=== PATIENT | male | born 1955 | race Two or more races ===

== ENCOUNTER 2016-11-22 07:15 | Emergency (ER) | payer SELFPAY ==
[~2016-11-22] VITALS: Ht 167.6 cm; Wt 86.2 kg
[~2016-11-22 07:15] MED LIST: AMLODIPINE BESY10 MG ORAL; ASPIRIN81 MG ORAL; HYDROCHLOROTHIA25 MG ORAL; METOPROLOL TART50 M1 ORAL; NITROGLYCERIN0.4 MG SL; POTASSIUM CHLO10 ME3 ORAL; SIMVASTATIN10 MG ORAL
[2016-11-22 07:30] VITALS: BP 150/84
[2016-11-22] MEDS ORDERED: Silver Nitrate Stick TOPIC ONE (08:00)
[2016-11-22] MEDS ORDERED: Lidocaine 1% 10mg/ml/Epi 0.005mg/ml 30ml vial INJ ONE (08:00)
--- NOTE | 2016-11-22 08:07 | Emergency Room Report ---
History of Present Illness General Chief Complaint: Nosebleed Source: Patient Present Illness HPI Patient presents with intermittent nosebleeds for one month. Son the left-hand side and comes out from the front. Denies any fevers or pain. He is on medications for high blood pressure and high cholesterol. He denies taking aspirin or ibuprofen. He hasn't lost a tremendous amount of blood but is concerned about the bleeding. It's not bleeding at the moment but bled this morning. He is treated for hypertension. Review of labs after our labs reveal low potassium when last checked. He is on HCTZ. No fevers, chills, chest pain, palpitations, nausea, vomiting, diarrhea, dysuria , abdominal pain, shortness of breath, depression, visual changes, headache. Allergies: Coded Allergies: No Known Allergies (Unverified , 12/23/13) Patient History Past Medical History: see triage record Social History Narrative works lifting heavy objects - Reviewed Nursing Documentation: PMH: Agreed, PSxH: Agreed Nursing Documentation-PMH Hx Cardiac Problems: Yes - high cholesterol Hx Hypertension: Yes Hx Pacemaker: No Hx Asthma: No Hx COPD: No Hx Diabetes: No Hx Cancer: No Hx Gastrointestinal Problems: No Hx Dialysis: No Hx Neurological Problems: No Hx Cerebrovascular Accident: No Hx Seizures: No Review of Systems All Other Systems: negative except mentioned in HPI Physical Exam Vital Signs Date Time Temp Pulse Resp B/P Pulse Ox O2 Delivery O2 Flow Rate FiO2 11/22/16 07:22 98.2 80 16 150/84 96 Room Air Sp02 EP Interpretation: reviewed, normal General Appearance: well appearing, no apparent distress, GCS 15 Head: normocephalic Eyes: bilateral eye PERRL, bilateral eye normal inspection ENT: normal pharynx, other - blood from L ant nare, no active bleeding Neck: supple Respiratory: lungs clear, normal breath sounds Cardiovascular #1: regular rate, rhythm Cardiovascular #2: 2+ radial (R) Gastrointestinal: normal inspection, normal bowel sounds, non tender, no mass, non-distended Musculoskeletal: back normal, gait/station normal, normal range of motion Neurologic: alert, oriented x3, grossly normal Psychiatric: mood/affect normal Skin: normal inspection, warm/dry, other - no pallor Procedures Additional Procedure Procedure Narrative Anterior epistaxis control. Packed with lidocaine with epinephrine. Cauterized vessel L septum. No more bleeding. Tolerated well. Medical Decision Making Diagnostic Impression: Primary Impression: Epistaxis Additional Impression: Hypokalemia ER Course Patient presents with left anterior epistaxis. As he's never had bloods drawn for this problem he be evaluated with CBC, PT PTT and also CMP. The nose will be PACs and also the lesion will be look for to possibly cauterize. See procedure note. Labs with good H/H. Low potassium. Potassium has been low for 5 years. Given PO. Changing from HCTZ to dyazide and giving replacement. Patient stable for outpatient observation and treatment. Laboratory Tests Test 11/22/16 08:15 White Blood Count 7.3 K/UL (4.8-10.8) Red Blood Count 4.40 M/UL (4.70-6.10) L Hemoglobin 13.5 G/DL (14.2-18.0) L Hematocrit 39.5 % (42.0-52.0) L Mean Corpuscular Volume 90 FL (80-99) Mean Corpuscular Hemoglobin 30.7 PG (27.0-31.0) Mean Corpuscular Hemoglobin Concent 34.1 G/DL (32.0-36.0) Red Cell Distribution Width 11.3 % (11.6-14.8) L Platelet Count 277 K/UL (150-450) Mean Platelet Volume 8.0 FL (6.5-10.1) Neutrophils (%) (Auto) 73.8 % (45.0-75.0) Lymphocytes (%) (Auto) 17.7 % (20.0-45.0) L Monocytes (%) (Auto) 6.9 % (1.0-10.0) Eosinophils (%) (Auto) 0.9 % (0.0-3.0) Basophils (%) (Auto) 0.7 % (0.0-2.0) Prothrombin Time 9.9 SEC (9.30-11.50) Prothrombin Time INR 0.9 (0.9-1.1) PTT 27 SEC (23-33) Sodium Level 143 mEQ/L (135-145) Potassium Level 2.7 mEQ/L (3.4-4.9) *L Chloride Level 101 mEQ/L (98-107) Carbon Dioxide Level 29 mEQ/L (20-30) Anion Gap 13 (5-15) Blood Urea Nitrogen 20 mg/dL (7-23) Creatinine 0.9 mg/dL (0.7-1.2) Estimate Glomerular Filtration Rate > 60 mL/min (>60) Glucose Level 228 mg/dL (74-106) H Calcium Level 9.3 mg/dL (8.6-10.2) Total Bilirubin 0.3 mg/dL (0.0-1.2) Aspartate Amino Transferase (AST) 19 U/L (5-40) Alanine Aminotransferase (ALT) 21 U/L (3-41) Alkaline Phosphatase 75 U/L (40-129) Total Protein 7.5 g/dL (6.6-8.7) Albumin 4.1 g/dL (3.5-5.2) Globulin 3.4 g/dL Albumin/Globulin Ratio 1.2 (1.0-2.7) Last Vital Signs Date Time Temp Pulse Resp B/P Pulse Ox O2 Delivery O2 Flow Rate FiO2 11/22/16 10:02 98.2 81 16 151/76 97 Room Air Status: improved Disposition: HOME, SELF-CARE Scripts Potassium Chloride (K-TAB) 10 Meq Tablet.er 10 MEQ PO DAILY, #14 TAB Prov: Jose Live M.D. 11/22/16 Triamterene/Hydrochlorothiazide* (DYAZIDE 37.5-25 MG TAB*) 1 Each Tablet 1 TAB ORAL DAILY, #30 TAB Prov: Jose Live M.D. 11/22/16 Jose Live M.D. Nov 22, 2016 08:07
[2016-11-22 08:30] VITALS: BP 144/79
[2016-11-22 08:32] LABS: BASOPHILS % (AUTO) 0.7 % (0.0-2.0); EOSINOPHILS % (AUTO) 0.9 % (0.0-3.0); LYMPHOCYTES % (AUTO) 17.7 % (20.0-45.0); MEAN CORPUSCULAR HEMOGLOBIN 30.7 PG (27.0-31.0); MEAN CORPUSCULAR HGB CONC 34.1 G/DL (32.0-36.0); MEAN CORPUSCULAR VOLUME 90 FL (80-99); MONOCYTES % (AUTO) 6.9 % (1.0-10.0); NEUTROPHILS % (AUTO) 73.8 % (45.0-75.0); PLATELET COUNT 277 K/UL (150-450); RED CELL DISTRIBUTION WIDTH 11.3 % (11.6-14.8); WHITE BLOOD COUNT 7.3 K/UL (4.8-10.8)
[2016-11-22 08:41] LABS: ALANINE AMINOTRANSFERASE 21 U/L (3-41); ALBUMIN/GLOBULIN RATIO 1.2 (1.0-2.7); ANION GAP 13 (5-15); ASPARTATE AMINO TRANSFERASE 19 U/L (5-40); CALCIUM 9.3 mg/dL (8.6-10.2); CARBON DIOXIDE 29 mEQ/L (20-30); CHLORIDE 101 mEQ/L (98-107); CREATININE 0.9 mg/dL (0.7-1.2); GLOMERULAR FILTRATION RATE > 60 mL/min (>60); HEMOLYSIS 8; SODIUM 143 mEQ/L (135-145); TOTAL PROTEIN 7.5 g/dL (6.6-8.7)
[2016-11-22 08:43] LABS: POTASSIUM 2.7 mEQ/L (3.4-4.9)
[2016-11-22 08:48] LABS: INR 0.9 (0.9-1.1); PROTHROMBIN TIME 9.9 SEC (9.30-11.50)
[2016-11-22] MEDS ORDERED: KCl 10% 40mEq/30ml liquid ORAL ONE (09:00)
[2016-11-22 09:30] VITALS: BP 151/76
[2016-11-22] MEDS ORDERED: TRIAMTERENE-HC1 EAC5 ORAL (09:45)
[2016-11-22] MEDS ORDERED: K-TAB10 MEQ PO (09:45)
[2016-11-22 10:02] VITALS: BP 151/76
== END 2016-11-22 10:03 | disposition home or self-care (01) ==
LOC: EMR 08:10
DX: R04.0 Epistaxis (principal); E87.6 Hypokalemia; I10 Essential (primary) hypertension; E78.00 Pure hypercholesterolemia, unspecified
CPT/HCPCS: 30901; 36415; 80053; 85025; 85610; 85730

== ENCOUNTER 2017-02-07 19:48 | Emergency (ER) | payer SELFPAY ==
[~2017-02-07] VITALS: Ht 167.6 cm; Wt 86.2 kg
[~2017-02-07 19:48] MED LIST changes: +K-TAB10 MEQ PO; +TRIAMTERENE-HC1 EAC5 ORAL
[2017-02-07 20:05] VITALS: BP 155/86
[2017-02-07] MEDS ORDERED: Silver Nitrate Stick TOPIC ONE (20:15)
[2017-02-07 20:34] VITALS: BP 155/86
--- NOTE | 2017-02-09 06:44 | Emergency Room Report ---
History of Present Illness General Chief Complaint: Nosebleed Source: Patient Present Illness HPI Patient presents with bleeding from left nostril area Patient reports that he has had this several times in the past The bleeding had stopped by the time the patient arrived denies any new medications denies any headache Denies any chest pressures of breath patient has had recent URI symptoms with mild runny nose Allergies: Coded Allergies: No Known Allergies (Unverified , 12/23/13) Patient History Past Medical History: see triage record Pertinent Family History: none Reviewed Nursing Documentation: PMH: Agreed, PSxH: Agreed Nursing Documentation-PMH Past Medical History: No History, Except For Hx Cardiac Problems: Yes - high cholesterol Hx Hypertension: Yes Hx Pacemaker: No Hx Asthma: No Hx COPD: No Hx Diabetes: No Hx Cancer: No Hx Gastrointestinal Problems: No Hx Dialysis: No Hx Neurological Problems: No Hx Cerebrovascular Accident: No Hx Seizures: No Review of Systems All Other Systems: negative except mentioned in HPI Physical Exam Vital Signs Date Time Temp Pulse Resp B/P (MAP) Pulse Ox O2 Delivery O2 Flow Rate FiO2 02/07/17 19:51 98.8 89 17 155/86 96 Room Air Sp02 EP Interpretation: reviewed, normal General Appearance: well appearing, no apparent distress Head: normocephalic, atraumatic Eyes: bilateral eye PERRL, bilateral eye EOMI ENT: hearing grossly normal, normal pharynx, TMs + canals normal, uvula midline , other - Left anterior turbinate appears mildly erythematous no obvious active bleeding or septal hematoma, Neck: full range of motion, supple, no meningismus, no bony tend Respiratory: lungs clear, normal breath sounds, no rhonchi, no respiratory distress, no retraction, no accessory muscle use Cardiovascular #1: normal peripheral pulses, regular rate, rhythm, no edema, no gallop, no JVD, no murmur Gastrointestinal: no hernia, no pulsatile mass, no rebound Neurologic: oriented x3, responsive, obstetrics gynecology md III-XII nml as tested, motor strength/ tone normal, sensory intact Psychiatric: mood/affect normal Skin: normal color, no rash, warm/dry, palpation normal Lymphatic: normal inspection, no adenopathy Medical Decision Making Diagnostic Impression: Primary Impression: Epistaxis ER Course Patient had silver nitrate applied to the left anterior turbinate Patient tolerated the procedure well At this time no signs of any active hemorrhage and patient is stable for close outpatient followup Last Vital Signs Date Time Temp Pulse Resp B/P (MAP) Pulse Ox O2 Delivery O2 Flow Rate FiO2 02/07/17 20:34 98.8 89 17 155/86 96 Room Air Status: improved Disposition: HOME, SELF-CARE Condition: Improved Referrals: NOT CHOSEN IPA/MD,REFERRING (PCP) Patient Instructions: Nosebleed, [id number] Additional Instructions: Patient is provided with the discharge instructions notified to follow up with primary doctor in the next 2-3 days otherwise return to the er with any worsening symptoms. Please note that this report is being documented using [employer] technology. This can lead to erroneous entry secondary to incorrect interpretation by the dictating instrument. TANVIR OLIVAREZ D.O. Feb 09, 2017 06:44
== END 2017-02-07 20:34 | disposition home or self-care (01) ==
LOC: EMR 20:30
DX: R04.0 Epistaxis (principal); I10 Essential (primary) hypertension
CPT/HCPCS: 99283

== ENCOUNTER 2017-10-21 00:30 | Inpatient (IN) | payer MEDICAID, OTHER ==
[~2017-10-21] VITALS: Ht 167.6 cm; Wt 86.2 kg
[2017-10-21] VITALS (8 sets, daily range): BP systolic 128–148; BP diastolic 64–78
[2017-10-21 01:59] LABS: BASOPHILS % (AUTO) 0.9 % (0.0-2.0); EOSINOPHILS % (AUTO) 2.1 % (0.0-3.0); HEMATOCRIT 40.2 % (42.0-52.0); HEMOGLOBIN 14.7 G/DL (14.2-18.0); LYMPHOCYTES % (AUTO) 25.3 % (20.0-45.0); MEAN CORPUSCULAR VOLUME 87 FL (80-99); NEUTROPHILS % (AUTO) 62.8 % (45.0-75.0); PLATELET COUNT 253 K/UL (150-450); RED BLOOD COUNT 4.62 M/UL (4.70-6.10); RED CELL DISTRIBUTION WIDTH 10.9 % (11.6-14.8); WHITE BLOOD COUNT 7.8 K/UL (4.8-10.8)
[2017-10-21 02:33] LABS: ALANINE AMINOTRANSFERASE 41 U/L (12-78); ALBUMIN 3.5 G/DL (3.4-5.0); ALBUMIN/GLOBULIN RATIO 0.8 (1.0-2.7); ALKALINE PHOSPHATASE 81 U/L (46-116); ANION GAP 10 mmol/L (5-15); ASPARTATE AMINO TRANSFERASE 24 U/L (15-37); BILIRUBIN,TOTAL 0.3 MG/DL (0.2-1.0); BLOOD UREA NITROGEN 21 mg/dL (7-18); CALCIUM 8.9 MG/DL (8.5-10.1); CARBON DIOXIDE 28 MMOL/L (21-32); CHLORIDE 105 MMOL/L (98-107); CKMB 1.1 NG/ML (0.0-3.6); CREATINE KINASE 200 U/L (26-308); CREATININE 1.1 MG/DL (0.55-1.30); SODIUM 143 MMOL/L (136-145)
[2017-10-21 02:34] LABS: POTASSIUM 2.5 MMOL/L (3.5-5.1)
--- NOTE | 2017-10-21 02:36 | Emergency Room Report ---
History of Present Illness General Chief Complaint: Chest Pain Source: Patient Present Illness HPI Patient present with complains of left-sided chest pain Onset 2 hours prior to arrival Patient reports the pain woke him up out of sleep Denies any shortness of breath pain was 3 out of 10 heaviness Denies any vomiting or diarrhea denies any fevers or chills On clinical evaluation patient appears to have possible Ovalle's palsy on the left side Asking further patient reports that he did notice some asymmetry about 7 days ago however has not seen any other medical follow-up for that Denies any focal weakness in the upper charities Denies any difficulty with gait or dizziness Allergies: Coded Allergies: No Known Allergies (Unverified , 12/23/13) Patient History Past Medical History: see triage record Pertinent Family History: none Reviewed Nursing Documentation: PMH: Agreed; PSxH: Agreed Nursing Documentation-PMH Hx Cardiac Problems: Yes - high cholesterol Hx Hypertension: Yes Hx Pacemaker: No Hx Asthma: No Hx COPD: No Hx Diabetes: No Hx Cancer: No Hx Gastrointestinal Problems: No Hx Dialysis: No Hx Neurological Problems: No Hx Cerebrovascular Accident: No Hx Seizures: No Review of Systems All Other Systems: negative except mentioned in HPI Physical Exam Vital Signs Date Time Temp Pulse Resp B/P (MAP) Pulse Ox O2 Delivery O2 Flow Rate FiO2 10/21/17 00:40 98.6 108 18 162/85 98 Room Air 98.6 Sp02 EP Interpretation: reviewed, normal General Appearance: well appearing, no apparent distress Head: normocephalic, atraumatic Eyes: bilateral eye PERRL ENT: normal pharynx, no angioedema, other - Left-sided facial palsy, limited to the facial area some mild conjunctival erythema on the left side Neck: supple, thyroid normal Respiratory: lungs clear, normal breath sounds Cardiovascular #1: regular rate, rhythm, no edema Gastrointestinal: non tender, soft, no mass Genitourinary: no CVA tenderness Musculoskeletal: normal inspection, back normal Neurologic: alert, oriented x3, responsive Skin: normal inspection, normal color Lymphatic: no adenopathy Medical Decision Making Diagnostic Impression: Primary Impression: ACS (acute coronary syndrome) Additional Impression: Hypokalemia ER Course Patient is a fairly complex patient with multiple differential to consideration including but not limited to cardiac cardiopulmonary and vascular emergencies Patient's initial EKG and blood work are appropriate CT head does not show any acute disease Patient was provided with aspirin at this time requires admission Registration has notified that the two-hour limited has been surpassed I had spoken about the case with Dr. richard However at this time patient admitted to [place] for further care as not to delay any further inpatient care Labs Test 10/21/17 01:50 10/21/17 01:58 10/21/17 02:00 Urine Opiates Screen Negative (NEGATIVE) Urine Barbiturates Screen Negative (NEGATIVE) Phencyclidine (PCP) Screen Negative (NEGATIVE) Urine Amphetamines Screen Negative (NEGATIVE) Urine Benzodiazepines Screen Negative (NEGATIVE) Urine Cocaine Screen Negative (NEGATIVE) Urine Marijuana (THC) Screen Negative (NEGATIVE) White Blood Count 7.8 K/UL (4.8-10.8) Red Blood Count 4.62 M/UL (4.70-6.10) Hemoglobin 14.7 G/DL (14.2-18.0) Hematocrit 40.2 % (42.0-52.0) Mean Corpuscular Volume 87 FL (80-99) Mean Corpuscular Hemoglobin 31.8 PG (27.0-31.0) Mean Corpuscular Hemoglobin Concent 36.5 G/DL (32.0-36.0) Red Cell Distribution Width 10.9 % (11.6-14.8) Platelet Count 253 K/UL (150-450) Mean Platelet Volume 8.0 FL (6.5-10.1) Neutrophils (%) (Auto) 62.8 % (45.0-75.0) Lymphocytes (%) (Auto) 25.3 % (20.0-45.0) Monocytes (%) (Auto) 9.0 % (1.0-10.0) Eosinophils (%) (Auto) 2.1 % (0.0-3.0) Basophils (%) (Auto) 0.9 % (0.0-2.0) Troponin I 0.000 ng/mL (0.000-0.056) Sodium Level 143 MMOL/L (136-145) Potassium Level 2.5 MMOL/L (3.5-5.1) Chloride Level 105 MMOL/L (98-107) Carbon Dioxide Level 28 MMOL/L (21-32) Anion Gap 10 mmol/L (5-15) Blood Urea Nitrogen 21 mg/dL (7-18) Creatinine 1.1 MG/DL (0.55-1.30) Estimat Glomerular Filtration Rate > 60 mL/min (>60) Glucose Level 132 MG/DL (74-106) Calcium Level 8.9 MG/DL (8.5-10.1) Total Bilirubin 0.3 MG/DL (0.2-1.0) Aspartate Amino Transf (AST/SGOT) 24 U/L (15-37) Alanine Aminotransferase (ALT/SGPT) 41 U/L (12-78) Alkaline Phosphatase 81 U/L (46-116) Total Creatine Kinase 200 U/L (26-308) Creatine Kinase MB 1.1 NG/ML (0.0-3.6) Creatine Kinase MB Relative Index 0.5 Pro-B-Type Natriuretic Peptide 46 pg/mL (0-125) Total Protein 8.1 G/DL (6.4-8.2) Albumin 3.5 G/DL (3.4-5.0) Globulin 4.6 g/dL Albumin/Globulin Ratio 0.8 (1.0-2.7) Lipase 129 U/L (73-393) EKG Diagnostic Results Rate: tachycardiac Rhythm: other ST Segments: other - Nonspecific ST T-wave changes Rhythm Strip Diag. Results EP Interpretation: yes Rate: 85 Rhythm: NSR, no PVC's, no ectopy Chest X-Ray Diagnostic Results Chest X-Ray Diagnostic Results : Chest X-Ray Ordered: Yes # of Views/Limited/Complete: 1 View Indication: Chest Pain EP Interpretation: Yes Interpretation: no consolidation, no effusion, no pneumothorax Impression: No acute disease Electronically Signed by: Ciro Pacheco DO CT/MRI/US Diagnostic Results CT/MRI/US Diagnostic Results : Impression CT head no acute disease Last Vital Signs Date Time Temp Pulse Resp B/P (MAP) Pulse Ox O2 Delivery O2 Flow Rate FiO2 10/21/17 01:11 89 18 Room Air 10/21/17 01:11 98.6 148/75 97 98.6 Status: improved Disposition: ADMITTED INPATIENT Condition: Serious Referrals: [facility],REFERRING (PCP) Ciro Pacheco DO Oct 21, 2017 02:36
--- NOTE | 2017-10-21 02:38 | Diagnostic Imaging Report ---
EXAM: XR Chest, 1 View CLINICAL HISTORY: CP TECHNIQUE: Frontal view of the chest. COMPARISON: Chest radiograph dated 05/12/14. FINDINGS: Lungs: Unremarkable. No consolidation. Pleural space: Unremarkable. No pneumothorax. Heart: Unremarkable. No cardiomegaly. Mediastinum: Unremarkable. Bones/joints: Unremarkable. Vasculature: There is calcification of the aortic arch. IMPRESSION: No interval change. No radiographic evidence of acute cardiopulmonary disease.
--- NOTE | 2017-10-21 05:08 | Diagnostic Imaging Report ---
EXAM: CT Head Without Intravenous Contrast CLINICAL HISTORY: WEAK TECHNIQUE: Axial computed tomography images of the head/brain without intravenous contrast. CTDI is 70 mGy and DLP is 1242 mGy-cm. One or more of the following dose reduction techniques were used: automated exposure control, adjustment of the mA and/or kV according to patient size, use of iterative reconstruction technique. COMPARISON: No relevant prior studies available. FINDINGS: Brain: Unremarkable. No hemorrhage. No significant white matter disease. No edema. Ventricles: Unremarkable. No ventriculomegaly. Bones/joints: Unremarkable. No acute fracture. Soft tissues: Unremarkable. Sinuses: Unremarkable as visualized. No acute sinusitis. Mastoid air cells: Unremarkable as visualized. No mastoid effusion. Other findings: A 1.6 mm calcification is seen in the right anterior parietal region. IMPRESSION: No acute intracranial pathology.
[2017-10-21] MEDS ORDERED: Triamterene/Hctz 37.5/25 cap ORAL SCH (09:00)
[2017-10-21] MEDS ORDERED: Metoprolol Tartrate 50mg tab ORAL SCH (09:00)
[2017-10-21] MEDS ORDERED: Heparin 5000 units/ml inj SUBQ SCH (09:00)
--- NOTE | 2017-10-21 11:30 | History and Physical Report ---
DATE OF ADMISSION: 10/21/2017 HISTORY OF PRESENT ILLNESS: This is a 62-year-old, predominantly [place]-speaking male who came to the emergency room with complaint of chest pain. He states he was sitting after dinner last night at about 11 p.m. when he had left precordial chest pain. Described this as a 3 on a scale of 10. There was no associated radiation to the jaw or the arm. There was no shortness of breath or diaphoresis. He states he is known hypertensive, but never has any other heart disease such as CAD or arrhythmias or heart failure. He states he had a negative stress test done at his doctor's office approximately 18 months ago. Additionally, he also reports that about a week ago, he started having left-sided facial numbness and heaviness and on examination today by the ER physician he had been found to have left-sided Ovalle's palsy. No other new symptoms noted such as headaches, weakness, or dizziness. PAST HISTORY: Hypertension and hyperlipidemia. MEDICATIONS: Home medications include amlodipine, metoprolol, Dyazide. ALLERGIES: None reported. SURGERIES: None reported. REVIEW OF SYSTEMS: Denies any headaches, hematemesis, melena, hematochezia, or weight loss. PHYSICAL EXAMINATION: VITAL SIGNS: Blood pressure 160/80, heart rate 104, respirations 18. He is afebrile. GENERAL: Reveals a 62-year-old male. HEENT: Unremarkable. He does have obvious left hemifacial droop. CHEST: Shows clear breath sounds bilaterally. ABDOMEN: Soft. HEART: Shows soft systolic murmur. EXTREMITIES: There is no peripheral edema. NEUROLOGIC: Nonfocal. LABORATORY DATA: Lab testing shows normal CBC. Potassium 2.5. Glucose 132. Urine tox is negative. EKG per ER physician is normal sinus rhythm. IMAGING STUDIES: The patient underwent a head CT, overnight which shows that there is no acute pathology noted. X-ray of the chest was done, which was also negative. IMPRESSION: 1. Left-sided Ovalle's palsy. 2. Chest discomfort, rule out acute coronary syndrome. 3. Hypertension. 4. Hyperlipidemia. DISCUSSION: Admit to the hospital. I will obtain serial troponins. If negative, consider discharge home assuming that the patient remains pain-free. We will start him on acyclovir and prednisone for his new Ovalle's palsy. I would recommend as an outpatient to see Cardiology and Neurology. Continue home medications, put on cardiac diet. DVT prophylaxis. Discussed with family at bedside. Gonzalo Dorantes M.D. DR: DELANO JOB#: [id number] CC:
--- NOTE | 2017-10-21 21:14 | Consultation ---
DATE OF CONSULTATION: 10/21/2017 CARDIOLOGY CONSULTATION CONSULTING PHYSICIAN: Jose Woods M.D. REQUESTING PHYSICIAN: Gonzalo Dorantes M.D. REASON FOR CONSULT: Chest pain. HISTORY OF PRESENT ILLNESS: This 62-year-old male presented to the emergency room last night with chest pain. It began around 11 p.m., was unprovoked and occurred at rest. He denies any prior such history and did not have any relief of his symptoms. Of note, he has had a stress test about a year and a half ago that was reportedly normal. His coronary risk factors include hypertension and hyperlipidemia. Concomitantly, the patient has had left-sided facial numbness and weakness for the past week. He has not had any other focal weakness. MEDICATIONS: Prior to admission, reviewed and reconciled. ALLERGIES: None known. PAST MEDICAL HISTORY: Hypertension and hyperlipidemia. SOCIAL HISTORY: Negative for smoking, alcohol, or substance abuse. FAMILY HISTORY: Not remarkable. REVIEW OF SYSTEMS: A 10-point review of systems performed, all systems negative other than noted above. PHYSICAL EXAMINATION: VITAL SIGNS: Blood pressure was 160/80, heart rate 104, respiratory rate 18, and afebrile. NECK: Supple. LUNGS: Clear. CARDIAC: Regular normal S1, S2 with no murmur, rub, or gallop. ABDOMEN: Soft, nontender. EXTREMITIES: No edema. NEUROLOGIC: Left facial asymmetry consistent with Ovalle's palsy. DIAGNOSTIC DATA: Chest x-ray with no acute process. EKG with sinus rhythm with no acute pathology. IMPRESSION: 1. Anginal syndrome. 2. Ovalle's palsy. 3. Hypertension. 4. Hyperlipidemia. PLAN: 1. Cardiac monitoring. 2. Advance beta-micaela and optimize blood pressure control. 3. Antiplatelet therapy with aspirin. 4. Consider statin drug. 5. Serial troponin levels. 6. Neurologic followup regarding facial palsy. Jose Woods M.D. DR: ARMANDO JOB#: [id number] CC:
--- NOTE | 2017-10-23 11:59 | Discharge Summary ---
Discharge Summary Discharge Summary _ DATE OF ADMISSION: 10/21/2017 DATE OF DISCHARGE: 2017 REASON FOR ADMISSION: 62 years old male with past medical history significant for hypertension and hyperlipidemia, presented to emergency department with complaint of chest pain. Patient reported left precordial location of chest pain which started last night after dinner. He denied radiation to the jaw or the arm. No associated shortness of breath or diaphoresis. Patient denied any history of heart disease such as coronary artery disease, arrhythmia, heart failure. Patient reported having a negative stress test done at the doctor's office about 18 months ago. In addition, patient reported that about a week ago he started to have left- sided facial numbness and heaviness. On examination by ED doctor, patient was found to have left-sided Ovalle palsy. No new symptoms since onset of the Ovalle palsy, such as headache,weakness or dizziness noted. Upon evaluation in ED troponin negative. EKG revealed no acute ischemic changes. Mild tachycardia- 108, blood pressure 162/85, pulse oximetry stable on room air . Potassium -2.5 replaced in emergency department. Urine tox screen was negative. Patient admitted to telemetry floor with diagnoses of chest pain, rule out acute coronary syndrome, left-sided Ovalle palsy, hypertension, hyperlipidemia. CONSULTANTS: slitter creaser slotter helper [facility] COURSE: Patient admitted to telemetry floor. Serial troponin 2 were negative. EKG revealed no acute ischemic changes. Cardiology consult was requested. Per slitter creaser slotter helper, patient likely had an anginal syndrome. antihypertensive medication regimen titrated, to include beta blockage. Antiplatelet therapy with aspirin and statin intiated. Patient educated on low fat low cholesterol cardiac diet. DVT prophylaxis provided. Home medications resumed. Patient was started on acyclovir and prednisone. Recommended outpatient follow- up with slitter creaser slotter helper and neurologist. Due to the insurance reasons, patient subsequently was transferred later that day to [facility] for further workup. FINAL DIAGNOSES: Left-sided Ovalle palsy Chest discomfort, rule out acute coronary syndrome Likely anginal syndrome Hypertension Hypercholesterolemia DISCHARGE MEDICATIONS: See Medication Reconciliation list. DISCHARGE INSTRUCTIONS: Patient was transferred to [facility] per insurance purposes follow-up with a medical doctor at the facility I have been assigned to dictate discharge summary for this account. I was not involved in the patient's management. Nadeen Hoffman NP Oct 23, 2017 11:59
--- NOTE | 2017-10-24 14:19 | Cardiology Report ---
APPROVED REPORT EKG Measurement Heart [id number] Sinus tachycardia N[address] ST abnormality Abnormal ECG
== END 2017-10-21 19:10 | disposition short-term general hospital (02) | DRG 198 ==
LOC: EMR 00:58 → 2E 05:10 → EDBEDREQ 06:07
DX: I20.9 Angina pectoris, unspecified (principal); I10 Essential (primary) hypertension; G51.0 Bell's palsy; E78.00 Pure hypercholesterolemia, unspecified
CPT/HCPCS: 36415; 70450; 71045; 80053; 80307; 82550; 82553; 83690; 83880; 84484; 85025; 93005; 99285; J8499

== ENCOUNTER 2019-06-30 18:09 | Emergency (ER) | payer MEDICAID, OTHER ==
[~2019-06-30] VITALS: Ht 167.6 cm; Wt 86.2 kg
--- NOTE | 2019-06-30 19:15 | NUR ---
ED Nurse Note: Pt ambualted to ED from home c/o headache 02/21 and high BP, 200's in triage, pt denies that he took anything for pain, Pt placed on youth nutritional monitor
[2019-06-30 19:26] VITALS: BP 211/100
--- NOTE | 2019-06-30 19:34 | Emergency Room Report ---
History of Present Illness General Chief Complaint: Hypertension Source: Patient Present Illness HPI Disclaimer: Please note that this report is being documented using DRAGON technology. This can lead to erroneous entry secondary to incorrect interpretation by the dictating instrument. HPI: 63-year-old male presents for evaluation of headache and elevated blood pressures. He takes amlodipine for his high blood pressure however he has been without it for proximally 1 week. Today while he was driving he noted occipital and worsening headache throughout the day. States is currently 8/10 and radiating into his neck. Denies any vision changes, loss of consciousness, seizures, fevers, chills, chest discomfort, shortness of breath, vomiting or diarrhea. Headache has been steady. No history of trauma. PMH: Hypertension, hyperlipidemia PSH: Denies Allergies: Denies Social Hx: Denies tobacco or alcohol use Allergies: Coded Allergies: No Known Allergies (Unverified , 12/23/13) Nursing Documentation-PMH Hx Cardiac Problems: Yes - high cholesterol Hx Hypertension: Yes Hx Pacemaker: No Hx Asthma: No Hx COPD: No Hx Diabetes: No Hx Cancer: No Hx Gastrointestinal Problems: No Hx Dialysis: No Hx Neurological Problems: No Hx Cerebrovascular Accident: No Hx Seizures: No Review of Systems All Other Systems: negative except mentioned in HPI Physical Exam Vital Signs Date Time Temp Pulse Resp B/P (MAP) Pulse Ox O2 Delivery O2 Flow Rate FiO2 06/30/19 18:18 98.4 68 19 211/100 (137) 96 Room Air General: Awake and alert, no acute distress HEENT: NC/AT. EOMI. Cardiovascular: RRR. S1 and S2 normal. No murmur appreciated Resp: Normal work of breathing. No cough, wheezing or crackles appreciated Abdomen: Abdomen is soft, nondistended. Nontender Skin: Intact. No abrasions, laceration or rash over the exposed skin MSK: Normal tone and bulk. Moving all extremities. No obvious deformity. Neuro: Awake and alert. Mentating appropriately. Back/Spine: No midline tenderness in the cervical, thoracic or lumbosacral spine. Medical Decision Making Diagnostic Impression: Primary Impression: Hypertensive urgency Additional Impression: Headache ER Course Is a 63-year-old male presenting for evaluation of occipital headache and hypertension. He has been without his amlodipine for 1 week. He notes significant neck discomfort but there is no nuchal rigidity. Patient is afebrile. Will obtain a CT scan of the head given his elevated pressures to rule out intracranial bleed and draw labs including cardiac enzymes. Will treat with IV antihypertensives and reevaluate. Laboratory Tests Test 06/30/19 19:55 White Blood Count 8.8 K/UL (4.8-10.8) Red Blood Count 4.57 M/UL (4.70-6.10) L Hemoglobin 13.9 G/DL (14.2-18.0) L Hematocrit 39.5 % (42.0-52.0) L Mean Corpuscular Volume 86 FL (80-99) Mean Corpuscular Hemoglobin 30.4 PG (27.0-31.0) Mean Corpuscular Hemoglobin Concent 35.2 G/DL (32.0-36.0) Red Cell Distribution Width 11.1 % (11.6-14.8) L Platelet Count 276 K/UL (150-450) Mean Platelet Volume 8.1 FL (6.5-10.1) Neutrophils (%) (Auto) 64.7 % (45.0-75.0) Lymphocytes (%) (Auto) 25.2 % (20.0-45.0) Monocytes (%) (Auto) 7.7 % (1.0-10.0) Eosinophils (%) (Auto) 1.5 % (0.0-3.0) Basophils (%) (Auto) 1.0 % (0.0-2.0) Sodium Level 146 MMOL/L (136-145) H Potassium Level 3.1 MMOL/L (3.5-5.1) L Chloride Level 107 MMOL/L (98-107) Carbon Dioxide Level 27 MMOL/L (21-32) Anion Gap 12 mmol/L (5-15) Blood Urea Nitrogen 24 mg/dL (7-18) H Creatinine 1.0 MG/DL (0.55-1.30) Estimate Glomerular Filtration Rate > 60 mL/min (>60) Glucose Level 122 MG/DL (74-106) H Calcium Level 8.8 MG/DL (8.5-10.1) Total Bilirubin 0.2 MG/DL (0.2-1.0) Aspartate Amino Transferase (AST) 16 U/L (15-37) Alanine Aminotransferase (ALT) 32 U/L (12-78) Alkaline Phosphatase 121 U/L (46-116) H Troponin I 0.007 ng/mL (0.000-0.056) Total Protein 7.4 G/DL (6.4-8.2) Albumin 3.1 G/DL (3.4-5.0) L Globulin 4.3 g/dL Albumin/Globulin Ratio 0.7 (1.0-2.7) L EKG Diagnostic Results EKG Time: 19:37 Rate: normal Rhythm: NSR ST Segments: no acute changes Other Impression Sinus rhythm, normal axis, normal intervals, no ST segment changes. ASA given to the pt in ED: Yes Rhythm Strip Diag. Results Rhythm Strip Time: 19:37 EP Interpretation: yes Rate: 70s Rhythm: NSR, no PVC's, no ectopy Chest X-Ray Diagnostic Results Chest X-Ray Diagnostic Results : Chest X-Ray Ordered: Yes # of Views/Limited/Complete: 1 View Indication: Chest Pain Interpretation: no consolidation, no effusion, no pneumothorax, no acute cardiopulmonary disease Impression: No acute disease Electronically Signed by: Electronically signed by Dr. Berry Aburto CT/MRI/US Diagnostic Results CT/MRI/US Diagnostic Results : Impression Numbers: [id number] Preliminary Findings Only See Final Report For Complete Findings CT HEAD Without Contrast: There is no acute hemorrhage, infarct, mass, or hydrocephalus. The paranasal sinuses and mastoid air cells are clear. Radiologist: Fabio Richmond MD Study ready at 20:11 and initial results transmitted at 20:12 Reevaluation Time: 22:08 Last Vital Signs Date Time Temp Pulse Resp B/P (MAP) Pulse Ox O2 Delivery O2 Flow Rate FiO2 06/30/19 19:26 68 19 Room Air 06/30/19 19:26 98.4 211/[address] scan does not show any evidence of intracranial bleed or mass. Labs have returned within normal limits. No evidence of renal impairment or other endorgan damage. Chest x-ray unremarkable. Blood pressure improved after 2 IV doses of medications. Discussed admission with patient however at this time he would like to return home and follow-up with his PMD. He is requesting a refill of his amlodipine which we will give. He still has metoprolol but I wrote him another prescription regardless. He states he no longer takes hydrochlorothiazide but I encouraged him to discuss with his PMD whether or not he should restart. Headache is resolved. Blood pressure improved. Patient is stable for outpatient follow-up. Discussed reasons to return to the emergency department. He understands and agrees with this treatment plan. Disposition: HOME, SELF-CARE Condition: Improved Scripts Amlodipine Besylate* (AMLODIPINE BESYLATE*) 10 Mg Tablet 10 MG ORAL DAILY for 30 Days, #30 TAB Prov: Berry Aburto MD 06/30/19 Metoprolol Tartrate* (METOPROLOL TARTRATE*) 50 Mg Tablet 50 MG ORAL EVERY 12 HOURS for 30 Days, #60 TAB Prov: Berry Aburto MD 06/30/19 Berry Aburto MD Jun 30, 2019 19:34
--- NOTE | 2019-06-30 20:13 | Diagnostic Imaging Report ---
Indications: Headache Technique: Spiral acquisitions obtained through the brain. Angled axial and coronal 5 x 5 mm slices were reconstructed. Total dose length product 1179 mGycm. CTDI vol(s) 53 mGy. Dose reduction achieved using automated exposure control Comparison: None. Findings: There is a parenchymal calcification at the right frontal wade-white junction. No acute intracranial hemorrhage or edema, mass effect, nor midline shift. Normal wade-white differentiation. Normal size ventricles and extra axial CSF spaces. Visualized orbits and sinuses are unremarkable. The mastoids are clear. 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 The CT scanner at [facility] is accredited by the [employer] and the scans are performed using protocols designed to limit radiation exposure to as low as reasonably achievable to attain images of sufficient resolution adequate for diagnostic evaluation.
[2019-06-30 20:44] LABS: EOSINOPHILS % (AUTO) 1.5 % (0.0-3.0); HEMATOCRIT 39.5 % (42.0-52.0); HEMOGLOBIN 13.9 G/DL (14.2-18.0); LYMPHOCYTES % (AUTO) 25.2 % (20.0-45.0); MEAN CORPUSCULAR VOLUME 86 FL (80-99); MONOCYTES % (AUTO) 7.7 % (1.0-10.0); NEUTROPHILS % (AUTO) 64.7 % (45.0-75.0); PLATELET COUNT 276 K/UL (150-450); RED BLOOD COUNT 4.57 M/UL (4.70-6.10); RED CELL DISTRIBUTION WIDTH 11.1 % (11.6-14.8); WHITE BLOOD COUNT 8.8 K/UL (4.8-10.8)
[2019-06-30] MEDS ORDERED: Acetaminophen 500mg (ES) tab ORAL ONE (21:00)
[2019-06-30 21:10] LABS: ANION GAP 12 mmol/L (5-15); BLOOD UREA NITROGEN 24 mg/dL (7-18); CALCIUM 8.8 MG/DL (8.5-10.1); CARBON DIOXIDE 27 MMOL/L (21-32); CHLORIDE 107 MMOL/L (98-107); POTASSIUM 3.1 MMOL/L (3.5-5.1); SODIUM 146 MMOL/L (136-145)
[2019-06-30 21:11] LABS: ALANINE AMINOTRANSFERASE 32 U/L (12-78); ALBUMIN 3.1 G/DL (3.4-5.0); ALBUMIN/GLOBULIN RATIO 0.7 (1.0-2.7); ALKALINE PHOSPHATASE 121 U/L (46-116); ASPARTATE AMINO TRANSFERASE 16 U/L (15-37); BILIRUBIN,TOTAL 0.2 MG/DL (0.2-1.0)
--- NOTE | 2019-06-30 21:15 | NUR ---
ED Nurse Note: Pt resting in bed with eyes closed, non-labored breathing. NO signs of distress, will continue to monitor
[2019-06-30] MEDS ORDERED: AMLODIPINE BESY10 MG ORAL (22:18)
[2019-06-30] MEDS ORDERED: METOPROLOL TART50 M1 ORAL (22:18)
[2019-06-30 22:35] VITALS: BP 203/93
--- NOTE | 2019-06-30 22:35 | NUR ---
ER DISCHARGE NOTE: Patient is cleared to be discharged per ERMD, pt is aox4, on room air, with stable vital signs. pt was given dc and prescription instructions, pt was able to verbalize understanding, pt id band and iv site removed without complications. pt is able to ambulate with steady gait. pt took all belongings.
--- NOTE | 2019-07-01 10:16 | Diagnostic Imaging Report ---
Indication: Shortness of breath Technique: One view of the chest Comparison: 10/21/2017 Findings: Lungs and pleural spaces are clear. Heart size is normal. Impression: No acute process
== END 2019-06-30 22:35 | disposition home or self-care (01) ==
LOC: EMR 19:30 → CANBEDREQ 22:24 → EMR 22:35
DX: R51 Headache (principal); I16.0 Hypertensive urgency; I10 Essential (primary) hypertension; E78.00 Pure hypercholesterolemia, unspecified; E78.5 Hyperlipidemia, unspecified
CPT/HCPCS: 36415; 70450; 71045; 80053; 84484; 85025; 93005; 96374; 96376; 99284; J0360